=== PATIENT | female | born 1960 | race Caucasian/White ===

== ENCOUNTER 2021-02-03 11:47 | Emergency (ER) | payer BC, SELFPAY ==
--- NOTE | ~2021-02-03 | XR_ITS ---
EXAMINATION: XR ankle RT min 3V DATE: 02/03/2021 12:06 INDICATION: Right ankle pain. Injury. TECHNIQUE: 4 views of right ankle were obtained. COMPARISON: None. FINDINGS: Bone alignment is normal. There is a bone fragment at the lateral aspect of the foot. There is mild osteoarthritis of talonavicular joint. There is ankle soft tissue swelling. IMPRESSION: 1. Bone fragment at the lateral aspect of the foot, likely an acute fracture. Possible origin sites m ay be the calcaneus or cuboid. Foot radiographs are recommended. Reviewed, dictated and finalized at location A. 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 Bone fragment at the lateral aspect of the foot, likely an acute fracture. P ossible origin sites may be the calcaneus or cuboid. Foot radiographs are recom mended.
--- NOTE | ~2021-02-03 | CT_ITS ---
EXAMINATION: CT foot RT wo con DATE: 02/03/2021 14:31 INDICATION: Right foot fracture and ankle injury post fall TECHNIQUE: High resolution computed tomography (CT) of the right foot and ankle was performed without intravenous contrast. Additional sagittal and coronal reconstructions were performed. Automated expo sure control and iterative reconstruction technique were employed. The dose-length product was 453.30 mGy-cm. COMPARISON: None FINDINGS: Mildly displaced likely avulsion fractures at the dorsolateral anterior process of the calcaneus, the lateral margin of the navicula and dorsal aspect of the head of the talus. Findings are consistent w ith a Chopart joint injury. Otherwise normal alignment throughout the right foot and ankle. No other fractures. Joint spaces are normal. Incidental bone island at the distal fibula. Soft tissue swelling at the anterior and lateral ankle and extending over the dorsolateral aspect of the foot. IMPRESSION: 1. Likely Chopart joint injury with small mildly displaced likely avulsion fractures at the anterior process of the calcaneus, navicula and head of the talus. Reviewed, dictated and finalized at location B. ONAL TRUCK DRIVER IMPRESSION: 1. Likely Chopart joint injury with small mildly displaced likely avulsion frac tures at the anterior process of the calcaneus, navicula and head of the talus.
--- NOTE | ~2021-02-03 | XR_ITS ---
EXAMINATION: XR foot RT min 3V DATE: 02/03/2021 12:42 INDICATION: Right foot fracture. TECHNIQUE: 4 views of right foot were obtained. COMPARISON: Right ankle radiographs 02/03/2021 FINDINGS: There is a displaced fracture of lateral aspect of anterior process of calcaneus. There is mild osteoarthritis of first metatarsophalangeal joint and talonavicular joint. IMPRESSION: 1. Displaced fracture of lateral aspect of anterior process of calcaneus. Reviewed, dictated and finalized at location A. TROMECHANIC
[2021-02-03 11:50] VITALS: BP 128/90; PULSE 102; RESP 14; TEMP 36.4; O2SAT 100
--- NOTE | 2021-02-03 15:26 | ED.LOWEXIN ---
HPI - Extremity Injury (Lower) General Chief Complaint: Extremity Injury, Lower Stated Complaint: ankle injury Time Seen by Provider: 02/03/21 11:55 Source: patient History of Present Illness HPI Narrative: Patient presents with right foot pain. Patient was going down the steps missed the last step and landed on her right ankle. She had immediate pain and came to the ER for evaluation. Her pain is achy, constant she is unable to bear weight. She notes edema to the area. Fortunately fell down the last step denied striking her head denies any loss of consciousness denies any focal numbness or weakness Related Data Allergies Allergy/AdvReac Type Severity Reaction Status Date / Time No Known Allergies Allergy Verified 02/03/21 11:56 Review of Systems Review of Systems: CONSTITUTIONAL: Denies fever, chills, or sweats. EYES: Denies visual changes, redness, or discharge. ENT: Denies rhinorrhea, congestion, sore throat, or otalgia. CARDIOVASCULAR: Denies chest pain, palpitations, or edema. RESPIRATORY: Denies cough or dyspnea. GASTROINTESTINAL: Denies abdominal pain, nausea, vomiting, or diarrhea. GENITOURINARY: Denies dysuria or hematuria. SKIN: Denies rash or itching. MUSCULOSKELETAL: Denies back pain, or myalgia. NEUROLOGIC: Denies headache, numbness, dizziness, or weakness. PSYCHIATRIC: Denies anxiety or depression. All systems reviewed & are unremarkable except as noted in HPI and below PMFSH Social History Social History (Updated 02/03/21 @ 15:32 by Navjot Vick MD) Substance use: never Exam Narrative: GENERAL: Well-appearing, well-nourished, and in no acute distress. HEAD: Normocephalic, atraumatic. EYES: PERRLA and EOMI. ENT: Nares clear, no rhinorrhea or epistaxis. Mucous membranes moist. NECK: Supple. No masses. No JVD EXTREMITIES: Limited motion of the right ankle due to pain and edema there is ecchymosis and edema around the right ankle most prominent area of tenderness is on the medial inferior aspect of the left ankle, ankle joint appears stable with ligamentous stress, exam limited due to pain and edema SKIN: Warm, dry, no rash. NEURO: No focal deficits. Alert and oriented x3. PSYCH: Normal mood and affect. Course Reevaluation(s) Reevaluation #1: Patient is resting comfortably, results and plan reviewed with patient. Date: 02/03/21 Time: 15:27 Vital Signs Vital signs: Vital Signs Temperature 36.4 C 02/03/21 11:50 Pulse Rate 102 H 02/03/21 11:50 Respiratory Rate 14 02/03/21 11:50 Blood Pressure 128/90 02/03/21 11:50 Pulse Oximetry 100 02/03/21 11:50 Temperature 36.4 C 02/03/21 11:50 Pulse Rate 78 02/03/21 16:02 Respiratory Rate 18 02/03/21 16:02 Blood Pressure 130/72 02/03/21 16:02 Pulse Oximetry 99 02/03/21 16:02 MDM - Extremity Injury (Lower) MDM Narrative Medical decision making narrative: H&P as above, vss, pt looks clinically well, exam neurovascularly intact distal extremity, imaging with minimally displaced fracture, additional labs/img considered, symptomatic relief available as needed, on reevaluation pt continues to looks clinically well. Suspect isolated fracture dns major neurovascular compromise, dislocation. plan to tx/monitor as op w/ pcm f/u findings/plan discussed with pt, pt agree/comfortable with plan, return precautions given Discharge Plan Discharge Clinical Impression: Foot fracture Qualifiers: Encounter type: initial encounter Fracture type: closed Laterality: right Qualified Code(s): S92.901A - Unspecified fracture of right foot, initial encounter for closed fracture Patient Disposition: Home, Self-Care Condition: Improved Instructions: Antibiotic Form, Foot Fracture in Adults (ED) Additional Instructions: Please return if your symptoms worsen or fail to improve. If you develop a fever, can not eat/drink anything or if you have any other concerns. Prescriptions: New oxycodone-acetaminophen 5-325 mg tablet 1
--- NOTE | 2021-02-03 15:54 | PC.NURSE ---
patient refused crutches
[2021-02-03 16:02] VITALS: BP 130/72; PULSE 78; RESP 18; O2SAT 99
== END 2021-02-03 16:04 | disposition home or self-care (01) ==
PROVIDERS: Emergency Provider Emergency Medicine
DX: S92.021A Displaced fracture of anterior process of right calcaneus, initial encounter for closed fracture (principal); S92.251A Displaced fracture of navicular [scaphoid] of right foot, initial encounter for closed fracture; S92.121A Displaced fracture of body of right talus, initial encounter for closed fracture; W10.9XXA Fall (on) (from) unspecified stairs and steps, initial encounter
CPT/HCPCS: 29515; 73610; 73630; 73700; 99284

== ENCOUNTER 2022-11-09 13:18 | Emergency (ER) | payer BC, SELFPAY ==
[2022-11-09 13:50] VITALS: BP 145/86; PULSE 89; RESP 18; TEMP 36.4; O2SAT 98
--- NOTE | 2022-11-09 14:08 | ED.URI ---
HPI - URI/Sore Throat General Chief Complaint: Upper Respiratory Infection Stated Complaint: Congestion,Headache Time Seen by Provider: 11/09/22 14:08 Source: patient, RN notes reviewed and old records reviewed Mode of arrival: ambulatory Limitations: no limitations History of Present Illness HPI Narrative: 62-year-old female who presents to [facility] with complaint sinus congestion with pressure to the right side of her face, right ear pain,headache, sinus drainage of yellowish since Sunday 3 days ago.Patient reports that she just traveled from [place] to area visiting family. Patient has history of frequent sinus infections and long history of tobacco abuse. Patient denies any fevers chills or body aches, denies any sore throat or acute cough.Patient reports that she has taken some Zyrtec. MD elicited complaint: rhinorrhea, nasal congestion and sinus pain Pertinent past history: sinusitis and other (smoking 1 ppd) Onset (ago): day(s) (4) Pain scale (0-10): 7 Able to tolerate fluids by mouth: Yes Treatments prior to arrival: other (Zyrtec) Related Data Home Medications Medication Instructions Recorded Confirmed carvedilol 12.5 mg tablet 12.5 mg PO DAILY 11/09/22 11/09/22 citalopram 40 mg tablet 40 mg PO DAILY 11/09/22 11/09/22 lisinopril 20 1 tablet PO DAILY 11/09/22 11/09/22 mg-hydrochlorothiazide 12.5 mg tablet simvastatin 20 mg tablet 20 mg PO DAILY 11/09/22 11/09/22 Allergies Allergy/AdvReac Type Severity Reaction Status Date / Time No Known Allergies Allergy Verified 11/09/22 14:08 Review of Systems Review of Systems: CONSTITUTIONAL: Denies malaise, chills, sweats, or fever. EYES: Denies visual changes, redness, or discharge. ENT: Reports rhinorrhea, congestion, sinus pain, right otalgia and no sore throat. CARDIOVASCULAR: Denies chest pain, palpitations, or edema. RESPIRATORY: Reports cough.? Denies dyspnea. GASTROINTESTINAL: Denies abdominal pain, nausea, vomiting, diarrhea SKIN: Denies rash or itching. MUSCULOSKELETAL: Denies myalgia. NEUROLOGIC:Reports headache. All systems reviewed & are unremarkable except as noted in HPI and below PMFSH Past Medical History Medical History (Updated 11/11/22 @ 11:22 by Joanna Castro NP) Fracture of left leg Sinusitis Surgical History Surgical History (Updated 11/11/22 @ 11:18 by Joanna Castro NP) Previous section Social History Social History (Updated 11/11/22 @ 11:20 by Joanna Castro NP) Smoking packs per day: 1 Smoking cigarettes per day: 20.0 Years smoked: 40 Smoking pack-years: 40.00 Smoking status: Current every day smoker Tobacco type: cigarettes Alcohol intake: current Alcohol use details: social Substance use: never Living arrangements: with family Gender identity (if verbalized by the patient): Female Comments At time of signature, agree with nursing past medical, surgical, social and family history. There is no relevant family history pertinent to the presenting complaint Exam Narrative: GENERAL: Well-appearing, well-nourished, and in no acute distress. HEAD: Normocephalic EYES: PERRLA, conjunctivae clear ENT: Nares clear, turbinates edematous and erythematous,yellow discharge. Mucous membranes moist. TM pearly zhou with dull light reflex bilaterally; no tragal tenderness. Oropharynx erythematous without lesions. Tonsils not enlarged and without exudate, no drooling, no hoarseness, no trismus, uvula midline.post nasal drainage NECK: Supple. No lymphadenopathy CHEST: Clear decreased to auscultation, breath sounds equal. No wheezing, rhonchi, rales, or stridor. No respiratory distress, speaks in full sentences.SAO2 98% on room air HEART: Regular rate and rhythm. No murmur heard. SKIN: Warm, dry, no rash. NEURO: Alert and oriented x3. PSYCH: Normal mood and affect Course Course Emergency Course: Patient is aware of diagnosis, understands and agr
== END 2022-11-09 14:25 | disposition home or self-care (01) ==
PROVIDERS: Emergency Provider Registered Nurse
DX: J32.9 Chronic sinusitis, unspecified (principal); F17.210 Nicotine dependence, cigarettes, uncomplicated
CPT/HCPCS: 99213; G0463